=== PATIENT | female | born 1945 | race Caucasian/White ===

== ENCOUNTER → 2016-03-06 | Day surgery (SDC) | payer MEDICARE, BC ==
[~2016-03-06] MED LIST: BUPIVACAINE/EPINEPHRINE 0.5% PF 10 ML VIAL ONE; IOHEXOL 180 MG/ML 20 ML VIAL (for RAD DIAG) ONE; KETOROLAC TROMETHAMINE 30 MG/ML (IVP) VIAL IV PUSH ONE; LACTATED RINGER'S 1000 ML INJ 1,000 ML ONE; LIDOCAINE 1%/EPINEPHrine 1:100,000 SOLN 20 ML VIAL ONE; MIDAZOLAM HCL 2 MG/2 ML VIAL ONE; PROPOFOL 200 MG/20 ML AMP IV ONE; ceFAZolin 2 GM PREMIX 50 ML ONE
--- NOTE | 2016-03-06 13:37 | TN ---
cc: YOLA LYMAN DATE OF SURGERY 03/06/2016 PREOPERATIVE DIAGNOSIS Compression fracture of L1, subacute. POSTOPERATIVE DIAGNOSIS Compression fracture of L1, subacute. PROCEDURE Kyphoplasty of L1 and placement of a bone cement spacer. SURGEON Yola Lyman MD ANESTHESIA TIVA ESTIMATED BLOOD LOSS Minimal INDICATION This patient is a 70-year-old female who injured her back two weeks before [place]. She developed a compression fracture which was treated conservatively. She now five almost six weeks out from her injury and presents now for kyphoplasty of the fractured L1 level. PROCEDURE The patient was brought to the operating room, given limited sedation. She rolled to a prone position on the radiolucent frame. All pressure points were protected. The back was scrubbed with alcohol, followed by Hibiclens, followed by Chloraprep and draped sterilely. Antibiotics were given within a one hour time window and a time-out was done. Local anesthesia was utilized. A single incision was made left of the midline over the L1 level. An awl was placed down through the vertebral body through the pedicle and into the vertebral body at an oblique angle. A 20 mm Kyphon balloon was placed and we had good correction of the deformity. On the back table, methacrylate was mixed and after approximately 11 minutes was injected. We had some extravasation into a fissure plain of the L1-2 disk. No other extravasation was noted. Filling was stopped. The wound was anesthetized, irrigated and closed with 4-0 Vicryl followed by Dermabond. The patient was awakened and taken to the recovery room in satisfactory condition. MD TESSA Moran/DAYANNA /1:18 PM /1:31 PM
== END | disposition home or self-care (01) ==
LOC: ESDC 10:47
PROVIDERS: ATTEND Orthopaedic Surgery Orthopaedic Surgery of the Spine
DX: S32.010A Wedge compression fracture of first lumbar vertebra, initial encounter for closed fracture (principal)
CPT/HCPCS: 01936; 22514; 72100; J0690; J1885; J2250; J3010; J7120; Q9965